=== PATIENT | male | born 1985 | race Hispanic/Latino ===

== ENCOUNTER 2023-04-04 10:33 | Emergency (ER) | payer OTHER ==
[~2023-04-04] VITALS: Ht 188 cm; Wt 90.7 kg
[2023-04-04] MEDS ORDERED: KETOROLAC 60 MG VIAL (30MG/ML) IM ONE (11:00)
[2023-04-04] MEDS ORDERED: ACET-2079 PO (11:21)
[2023-04-04 11:42] VITALS: BP 146/91; PULSE 57; RESP 18; O2SAT 97
== END 2023-04-04 11:43 | disposition home or self-care (01) ==
LOC: EDH 10:33
DX: S62.633A Displaced fracture of distal phalanx of left middle finger, initial encounter for closed fracture (principal); Z98.890 Other specified postprocedural states; X58.XXXA Exposure to other specified factors, initial encounter; Y93.89 Activity, other specified; Y92.89 Other specified places as the place of occurrence of the external cause; Y99.8 Other external cause status
CPT/HCPCS: 99283; 73140; 96372; J1885